=== PATIENT | female | born 1930 | race Caucasian/White ===

== ENCOUNTER 2017-06-17 18:25 | Emergency (ER) | payer MEDICARE ==
[~2017-06-17] VITALS: Ht 157.5 cm; Wt 68.0 kg
[2017-06-17 20:48] LABS: BASOPHILS % 0.4 % (0.0-1.0); EOSINOPHILS % 0.4 % (0.0-6.0); HEMATOCRIT 36.4 % (34.2-44.1); HEMOGLOBIN 11.5 g/dL (12.0-16.0); LYMPHOCYTES # (AUTO) 0.3 (1.0-3.2); LYMPHOCYTES % 4.9 % (18.0-39.1); MEAN CORPUSCULAR HEMOGLOBIN 24.4 pg (28-32); MEAN CORPUSCULAR HGB CONC 31.6 g/dL (31-35); MEAN CORPUSCULAR VOLUME 77.1 fL (81-99); MONOCYTES # (AUTO) 0.4 (0.2-0.8); MONOCYTES % 7.7 % (4.4-11.3); NEUTROPHILS # (AUTO) 4.5 (2.1-6.9); NEUTROPHILS % 84.4 % (38.7-80.0); PLATELET COUNT 422 x10e3/uL (140-360); RED BLOOD COUNT 4.72 x10e6/uL (3.6-5.1); RED CELL DISTRIBUTION WIDTH 19.2 % (11.7-14.4)
[2017-06-17 21:04] LABS: ALBUMIN 3.8 g/dL (3.5-5.0); ALBUMIN/GLOBULIN RATIO 1.1 (0.8-2.0); ANION GAP 11.2 mmol/L (8-16); CALCIUM 9.3 mg/dL (8.4-10.2); CREATININE, SERUM 1.25 mg/dL (0.57-1.11); POTASSIUM 4.2 mmol/L (3.5-5.1)
--- NOTE | 2017-06-17 21:14 | Diagnostic Imaging Report ---
CHEST 2 VIEWS, Technique: CHEST 2 VIEWS Comparison: None Clinical history: Cough, fever DISCUSSION: Heart/mediastinum: Borderline cardiomegaly. Lungs/pleural spaces: No consolidation or edema. No effusion or pneumothorax. IMPRESSION: No acute abnormality Signed by: Dr Rox Remy MD on 06/17/2017 9:10 PM
[2017-06-17 21:47] LABS: BILIRUBIN,URINE NEGATIVE (NEGATIVE); CLARITY,URINE CLEAR (CLEAR); COLOR,URINE YELLOW (YELLOW); KETONES,URINE NEGATIVE (NEGATIVE); LEUKOCYTE ESTERASE ,URINE NEGATIVE (NEGATIVE); NITRITE,URINE NEGATIVE (NEGATIVE); PROTEIN,URINE DIPSTICK NEGATIVE (NEGATIVE); URINE UROBILINOGEN 0.2 mg/dL (0.2 - 1)
[2017-06-17 21:52] LABS: RBC,URINE 0-5 /HPF (0-5); WBC,URINE (MAN) 0-5 /HPF (0-5)
[2017-06-17 21:53] LABS: BACTERIA,URINE RARE /HPF; EPITHELIAL CELLS,URINE FEW /LPF; MUCUS,URINE MANY (RARE)
[2017-06-17 23:20] VITALS: BP 159/74
== END 2017-06-17 23:37 | disposition home or self-care (01) ==
LOC: ER 18:25
DX: R50.9 Fever, unspecified (principal); R05 Cough; J42 Unspecified chronic bronchitis; N28.9 Disorder of kidney and ureter, unspecified
CPT/HCPCS: 36415; 71020; 80053; 81001; 83605; 85025; 87040; 87086; 87400; 99283

== ENCOUNTER → 2018-03-14 | Outpatient (CLI) | payer MEDICARE ==
--- NOTE | 2018-03-14 13:08 | Diagnostic Imaging Report ---
EXAMINATION: CHEST 2 VIEWS COMPARISON: Chest radiograph 06/17/17. FINDINGS: TUBES and LINES: None. LUNGS: There is new consolidative opacity in the right upper and mid lungs and left lower lung. There is bronchial wall thickening. PLEURA: Possible trace bilateral pleural effusions. HEART AND MEDIASTINUM: The cardiomediastinal silhouette is unchanged. Atherosclerotic aortic calcification. BONES AND SOFT TISSUES: No acute osseous lesion. Soft tissues are unremarkable. UPPER ABDOMEN: No free air under the diaphragm. IMPRESSION: Multifocal consolidation in the right upper and mid lung and left lower lung, which is suspicious for pneumonia. Follow-up chest radiograph suggested in 6-8 weeks to assess for resolution. Signed by: Dr. Jaspal Vicente MD on 03/14/2018 1:05 PM
== END ==
LOC: RAD 11:59
PROVIDERS: ATTEND Family Medicine
DX: J98.01 Acute bronchospasm (principal)
CPT/HCPCS: 71046

== ENCOUNTER → 2018-07-17 | Outpatient (CLI) | payer MEDICARE ==
--- NOTE | 2018-07-17 11:35 | Diagnostic Imaging Report ---
TECHNIQUE: Computed tomography imaging of the LEFT HIP was performed WITHOUT injected contrast. Dose modulation, iterative reconstruction, and/or weight based adjustment of the mA/kV was utilized to reduce the radiation dose to as low as reasonably achievable. HISTORY: Left hip pain COMPARISON: None available. FINDINGS: Bone: No focal or infiltrative bone marrow replacing abnormality. No osteonecrosis or acute fracture. Femoroacetabular Joint: Mild degenerative arthrosis of the left hip. Moderate degenerative arthrosis of the pubic symphysis with calcium pyrophosphate deposition. Muscle and tendons: Enthesophyte formation with calcification overlying the greater trochanter. Soft tissues: Atrophy of the gluteal musculature. IMPRESSION: No acute osseous abnormality. 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 Signed by: Dr. Ernesto Hernandez M.D. on 07/17/2018 11:31 AM
== END ==
LOC: CT 10:31
PROVIDERS: ATTEND Family Medicine
DX: M25.552 Pain in left hip (principal)